=== PATIENT | female | born 1960 | race Caucasian/White ===

== ENCOUNTER 2019-07-10 23:21 | Inpatient (IN) | payer OTHER ==
[~2019-07-10] VITALS: Ht 160 cm; Wt 105.7 kg
[2019-07-10 23:27] VITALS: BP_SYST 120
[2019-07-11 00:36] LABS: BASOPHILS % (AUTO) 0.4 % (0.0-2.0); EOSINOPHILS # (AUTO) 0.1 K/uL (0.0-0.4); EOSINOPHILS % (AUTO) 2.1 % (0.0-4.0); HEMATOCRIT 39.7 % (36-48); HEMOGLOBIN 13.7 g/dL (12.0-16.0); LYMPHOCYTES % (AUTO) 32.2 % (20.5-51.5); MEAN CORPUSCULAR HEMOGLOBIN 34 pg (27-31); MEAN CORPUSCULAR HGB CONC 35 % (32-36); MEAN CORPUSCULAR VOLUME 97 fL (79.0-98.0); MONOCYTES # (AUTO) 0.6 K/uL (0.0-1.0); MONOCYTES % (AUTO) 9.7 % (1.7-9.3); NEUTROPHILS # (AUTO) 3.5 K/uL (1.8-7.7); NEUTROPHILS % (AUTO) 55.6 % (40.0-70.0); PLATELET COUNT (AUTO) 275 K/uL (130-430); RED BLOOD CELL COUNT(AUTO) 4.09 MIL/uL (4.2-6.2); RED CELL DISTRIBUTION WIDTH 13.7 % (9.0-15.0); WHITE BLOOD COUNT (AUTO) 6.3 K/uL (4.8-10.8)
[2019-07-11 00:51] LABS: CALCIUM 8.4 mg/dL (8.4-11.0); CREATININE 0.74 mg/dL (0.55-1.30); POTASSIUM 3.2 mmol/L (3.5-5.1)
[2019-07-11 01:09] LABS: BILIRUBIN,URINE NEGATIVE (NEGATIVE); BLOOD, URINE NEGATIVE (NEGATIVE); CLARITY/URINE CLEAR (CLEAR); COLOR,URINE YELLOW (YELLOW); GLUCOSE,URINE NEGATIVE (NEGATIVE); KETONES,URINE NEGATIVE (NEGATIVE); LEUKOCYTE ESTERASE ,URINE NEGATIVE (NEGATIVE); NITRITE, URINE NEGATIVE (NEGATIVE); PROTEIN URINE NEGATIVE (NEGATIVE)
[2019-07-11 01:12] LABS: ALBUMIN 3.7 g/dL (3.4-4.8); TOTAL BILIRUBIN 0.4 mg/dL (0.0-1.0)
[2019-07-11 01:21] LABS: BARBITURATE, URINE NEGATIVE (NEG <=200); BENZODIAZEPINE, URINE POSITIVE (NEG <=150); CANNABINOID, URINE NEGATIVE (NEG <=50); COCAINE, URINE NEGATIVE (NEG <=150); METHAMPHETAMINES SCREEN,URINE NEGATIVE (NEG <=500); OPIATE, URINE NEGATIVE (NEG <=100); PHENCYCLIDINE SCREEN,URINE NEGATIVE (NEG <=25); UR TRICYCLIC ANTIDEPRESSANTS NEGATIVE (NEG <=300); URINE AMPHETAMINE NEGATIVE (NEG <=500); URINE METHADONE NEGATIVE (NEG <=200); URINE OXYCODONE SCREEN NEGATIVE (NEG <=100); URINE PROPOXYPHENE SCREEN NEGATIVE (NEG <=300)
[2019-07-11] MEDS ORDERED: DIPH-TET-PERTUS Vaccine 0.5 ML VIAL (ADACEL) I.M. ONE (01:30)
[2019-07-11] MEDS ORDERED: KETOROLAC TROMETHAMINE 30 MG VIAL IVP ONE (01:30)
[2019-07-11] MEDS ORDERED: NACL 0.9% 1,000 ML IV ONE (01:30)
[2019-07-11] MEDS ORDERED: GLU500 PO (02:21)
[2019-07-11] MEDS ORDERED: ALPR0.25 PO (02:30)
[2019-07-11] MEDS ORDERED: VENL37.587 PO (02:30)
[2019-07-11] MEDS ORDERED: LOSA1TAB40 PO (02:30)
[2019-07-11] MEDS ORDERED: PANT20TA2 PO (02:30)
[2019-07-11] MEDS ORDERED: NACL 0.9% 1,000 ML IV SCH (03:30)
[2019-07-11 03:33] VITALS: BP_SYST 114
[2019-07-11 08:00] VITALS: BP_SYST 134
[2019-07-11] MEDS ORDERED: POTASSIUM CHLORIDE 40 MEQ in NS 250 ML IV ONE (08:00)
[2019-07-11] MEDS: cefTRIAXone 1 GM in D5W 50 ML IV SCH (08:12)
[2019-07-11] MEDS: ACETAMINOPHEN 325 MG TABLET PO PRN ×2 (09:14→20:07)
[2019-07-11 12:00] VITALS: BP_SYST 129
[2019-07-11 16:00] VITALS: BP_SYST 144
[2019-07-11] MEDS ORDERED: DEXTROSE 50% JECT 50 ML DISP.SYRIN IVP PRN (18:30)
[2019-07-11] MEDS ORDERED: ALPRAZolam 0.25 MG TABLET PO PRN (18:30)
[2019-07-11] MEDS ORDERED: MAG-AL HYDROX/SIMETH 30 ML UDC PO PRN (18:30)
[2019-07-11] MEDS ORDERED: INSULIN REGULAR, HUMAN 100 UNITS/ML, 10 ML VIAL (humuLIN R) SUBCUT PRN (18:30)
[2019-07-11 19:59] VITALS: BP_SYST 140
[2019-07-11] MEDS: PANTOPRAZOLE SODIUM 40 MG TAB PO SCH (21:00)
[2019-07-12 00:14] VITALS: BP_SYST 134
[2019-07-12 05:58] LABS: BASOPHILS % (AUTO) 0.3 % (0.0-2.0); EOSINOPHILS # (AUTO) 0.1 K/uL (0.0-0.4); EOSINOPHILS % (AUTO) 1.5 % (0.0-4.0); HEMATOCRIT 39.1 % (36-48); HEMOGLOBIN 13.3 g/dL (12.0-16.0); LYMPHOCYTES # (AUTO) 3.1 K/uL (1.0-5.5); LYMPHOCYTES % (AUTO) 49.9 % (20.5-51.5); MEAN CORPUSCULAR HEMOGLOBIN 33 pg (27-31); MEAN CORPUSCULAR HGB CONC 34 % (32-36); MEAN CORPUSCULAR VOLUME 98 fL (79.0-98.0); MONOCYTES # (AUTO) 0.5 K/uL (0.0-1.0); MONOCYTES % (AUTO) 7.5 % (1.7-9.3); NEUTROPHILS # (AUTO) 2.5 K/uL (1.8-7.7); NEUTROPHILS % (AUTO) 40.8 % (40.0-70.0); PLATELET COUNT (AUTO) 270 K/uL (130-430); RED CELL DISTRIBUTION WIDTH 13.8 % (9.0-15.0); WHITE BLOOD COUNT (AUTO) 6.2 K/uL (4.8-10.8)
[2019-07-12 08:04] VITALS: BP_SYST 148
[2019-07-12] MEDS: cefTRIAXone 1 GM in D5W 50 ML IV SCH (08:20)
[2019-07-12] MEDS: PANTOPRAZOLE SODIUM 40 MG TAB PO SCH (08:20)
[2019-07-12] MEDS: metFORMIN HCL 500 MG TABLET PO SCH ×2 (08:21→17:08)
[2019-07-12] MEDS: VENLAFAXINE HCL 50 MG TABLET PO SCH ×2 (08:23→14:56)
[2019-07-12] MEDS ORDERED: HYDROCHLOROTHIAZIDE 25 MG TABLET (HCTZ) PO SCH (09:00)
[2019-07-12] MEDS ORDERED: LOSARTAN POTASSIUM 50 MG TABLET (COZAAR) PO SCH (09:00)
[2019-07-12] MEDS ORDERED: NON-FORMULARY MEDICATION (Losartan/Hctz* (Losartan-Hctz 100-25 Mg Tab*) 1 EACH) PO SCH (09:00)
[2019-07-12 12:02] VITALS: BP_SYST 135
[2019-07-12 13:25] LABS: CHOLESTEROL 198 mg/dL (<200); HDL CHOLESTEROL 91 mg/dL (>55); LDL CHOLESTEROL 124 mg/dL (<100); TRIGLYCERIDES 130 mg/dL (30-150)
[2019-07-12 13:31] LABS: ALANINE AMINOTRANSFERASE 54 U/L (12-78); ALBUMIN 3.7 g/dL (3.4-4.8); ANION GAP 7 (5-15); ASPARTATE AMINOTRANSFERASE 35 U/L (10-37); CHLORIDE 105 mmol/L (98-107); CREATININE 0.82 mg/dL (0.55-1.30); FREE T4 (FREE THYROXINE) 0.9 ng/dl (0.8-1.5); GLUCOSE 119 mg/dL (70-99); POTASSIUM 3.7 mmol/L (3.5-5.1); SODIUM SERUM 142 mmol/L (136-145); THYROID STIMULATING HORMONE 6.43 uIu/mL (0.36-3.74); TOTAL BILIRUBIN 0.4 mg/dL (0.0-1.0); UREA NITROGEN, BLOOD 6 mg/dL (8-21)
[2019-07-12 13:36] LABS: GFR AFRICAN AMERICAN 92 mL/min (>90)
[2019-07-12] MEDS ORDERED: THIA100T73 PO (13:58)
[2019-07-12] MEDS ORDERED: THIAMINE HCL 100 MG TABLET PO ONE (14:00)
[2019-07-12] MEDS ORDERED: VITA-285 PO (14:00)
[2019-07-12] MEDS ORDERED: LEVO25TA2 PO (14:01)
[2019-07-12 16:00] VITALS: BP_SYST 141
[2019-07-12 20:34] VITALS: BP_SYST 150
== END 2019-07-12 21:30 | disposition home or self-care (01) | DRG 897 ==
LOC: SED 23:21 → STU 07-11 02:38
PROVIDERS: ADMIT Internal Medicine; ATTEND Internal Medicine
DX: F10.129 Alcohol abuse with intoxication, unspecified (principal); E87.2 Acidosis; Z68.41 Body mass index [BMI] 40.0-44.9, adult; E11.9 Type 2 diabetes mellitus without complications; E87.6 Hypokalemia; I10 Essential (primary) hypertension; F32.9 Major depressive disorder, single episode, unspecified; M17.12 Unilateral primary osteoarthritis, left knee; E66.9 Obesity, unspecified; E03.9 Hypothyroidism, unspecified; S50.312A Abrasion of left elbow, initial encounter; S00.83XA Contusion of other part of head, initial encounter; W18.30XA Fall on same level, unspecified, initial encounter; Y93.89 Activity, other specified; Y99.8 Other external cause status; Z98.891 History of uterine scar from previous surgery; Z85.828 Personal history of other malignant neoplasm of skin; Z88.2 Allergy status to sulfonamides; Z79.899 Other long term (current) drug therapy; Y92.090 Kitchen in other non-institutional residence as the place of occurrence of the external cause
CPT/HCPCS: 36415; 70450-TC; 71045; 80053; 80061; 80307; 81003; 82962; 83605; 84439; 84443-TC; 84484; 85025; 85610-TC; 85730-TC; 87040-TC; 87086; 90715; 93005; 93306; 96374; 99285; G0378; G0482; J0696; J1815; J1885; J3480; J7030; J7050; J7060

== ENCOUNTER 2022-12-29 01:19 | Emergency (ER) | payer MEDICAID, OTHER ==
[~2022-12-29] VITALS: Ht 160 cm; Wt 90.7 kg
[~2022-12-29 01:19] MED LIST: ALPR0.25 PO; GLU500 PO; LEVO25TA2 PO; LOSA1TAB40 PO; PANT20TA2 PO; THIA100T73 PO; VENL37.587 PO; VITA-285 PO
[2022-12-29 01:38] VITALS: BP_SYST 171
[2022-12-29] MEDS ORDERED: amLODIPine BESYLATE 5 MG TABLET PO ONE ×2 (02:00→02:15)
[2022-12-29] MEDS ORDERED: VALS80TA31 PO (02:23)
[2022-12-29] MEDS ORDERED: MECL-225 PO (02:24)
[2022-12-29 02:39] VITALS: BP_SYST 147
== END 2022-12-29 02:49 | disposition home or self-care (01) ==
LOC: SED 01:19
DX: I10 Essential (primary) hypertension (principal); E11.9 Type 2 diabetes mellitus without complications; R42 Dizziness and giddiness; Z88.2 Allergy status to sulfonamides; Z79.899 Other long term (current) drug therapy
CPT/HCPCS: 93005; 99283